=== PATIENT | male | born 1970 | race African-American/Black ===

== ENCOUNTER 2020-08-28 18:20 | Emergency (ER) | payer SELFPAY ==
[2020-08-28] MEDS ORDERED: Dexamethasone 4 mg/ml Vial ONE (21:34)
== END 2020-08-28 21:45 | disposition home or self-care (01) ==
LOC: ERS 18:20
DX: R05 Cough (principal); R09.81 Nasal congestion; F17.210 Nicotine dependence, cigarettes, uncomplicated
CPT/HCPCS: 99283; J1100

== ENCOUNTER 2021-07-07 20:23 | Emergency (ER) | payer BC, SELFPAY ==
[2021-07-08 08:04] LABS: SARS-CoV-2 PCR by NAA Not Detected (NotDetected)
== END 2021-07-07 21:25 | disposition home or self-care (01) ==
LOC: ERS 20:23
DX: R09.81 Nasal congestion (principal); M79.10 Myalgia, unspecified site; Z20.822 Contact with and (suspected) exposure to COVID-19
CPT/HCPCS: 99283; U0003; U0005